=== PATIENT | male | born 1965 | race Caucasian/White ===

== ENCOUNTER 2017-04-29 19:05 | Emergency (ER) | payer OTHER ==
--- NOTE | 2017-04-29 20:31 | ED Physician Documentation ---
PD HPI ABD PAIN - Stated complaint Stated Complaint: ABD PAIN/NAUSEA - Chief complaint Chief Complaint: Abd Pain - History obtained from History obtained from: Patient - History of Present Illness Timing - onset: Today (this morning) Timing - duration: Hours Timing - details: Gradual onset, Constant, Waxing and waning Pain level now: 8 Quality: Pain Location: Periumbilical Radiation: Left flank, Right flank Improved by: Other (no ameliorating factors) Worsened by: Other (no exacerbating factors) Associated symptoms: Nausea. No: Fever, Vomiting, Diarrhea, Constipation, Chest pain Similar symptoms before: Has not had sx before Recently seen: Not recently seen Review of Systems Constitutional: reports: Reviewed and negative Cardiac: reports: Reviewed and negative Respiratory: reports: Reviewed and negative GI: reports: Abdominal Pain, Nausea. denies: Abdominal Swelling, Vomiting, Constipation, Diarrhea : denies: Dysuria, Frequency Skin: reports: Reviewed and negative Musculoskeletal: reports: Reviewed and negative PD PAST MEDICAL HISTORY - Past Medical History Past Medical History: Yes Cardiovascular: Hypertension, High cholesterol Neuro: None Endocrine/Autoimmune: None GI: None : None HEENT: None Psych: None Musculoskeletal: None Derm: None - Past Surgical History Past Surgical History: Yes General: Cholecystectomy, Other HEENT: Tonsil/Adenoidectomy - Allergies Allergies/Adverse Reactions: Allergies Allergy/AdvReac Type Severity Reaction Status Date / Time No Known Drug Allergies Allergy Verified 04/29/17 19:13 - Social History Does the pt smoke?: Yes Smoking Status: Current every day smoker Does the pt drink ETOH?: Yes Does the pt have substance abuse?: No - Immunizations Immunizations are current?: Yes - POLST Patient has POLST: No PD ED PE NORMAL - Vitals Vital signs reviewed: Yes - General General: Alert and oriented X 3, No acute distress (mostly NAD but at time he appears to shift around on stretcher due to episodic discomfort), Well developed /nourished - HEENT HEENT: Moist mucous membranes - Neck Neck: Supple, no meningeal sign - Cardiac Cardiac: RRR, No murmur, No gallop, No rub - Respiratory Respiratory: No respiratory distress, Clear bilaterally - Abdomen Abdomen: Normal bowel sounds, Soft, Non tender, Non distended, No organomegaly - Back Back: No CVA TTP, No spinal TTP - Derm Derm: Normal color, Warm and dry, No rash - Extremities Extremities: No edema Results - Vitals Vitals: Vital Signs - 24 hr 04/29/17 04/29/17 04/29/17 19:07 21:50 23:02 Temperature 36.9 C Heart Rate 89 85 77 Respiratory 18 16 16 Rate Blood Pressure 164/99 H 136/76 H 123/71 O2 Saturation 100 97 98 Oxygen O2 Source Room air - Labs Labs: Laboratory Tests 04/29/17 04/29/17 04/29/17 20:20 20:55 20:55 WBC 12.8 H RBC 4.56 L Hgb 14.1 Hct 40.4 L MCV 88.8 MCH 31.0 MCHC 34.9 RDW 13.3 Plt Count 239 MPV 7.6 Neut # 10.3 H Lymph # 1.5 [place] # 0.9 Eos # 0.1 Baso # 0.0 Absolute Nucleated RBC 0.00 Nucleated RBCs 0.0 Sodium 134 L Potassium 3.8 Chloride 102 Carbon Dioxide 22 Anion Gap 10.0 BUN 14 Creatinine 0.8 Estimated GFR (MDRD) 102 Glucose 109 H Calcium 9.9 Total Bilirubin 0.6 AST 30 ALT 64 H Alkaline Phosphatase 76 Total Protein 7.2 Albumin 4.6 Globulin 2.6 Albumin/Globulin Ratio 1.8 Lipase 22 Urine Color YELLOW Urine Clarity CLEAR Urine pH 7.0 Ur Specific [place] 1.015 Urine Protein NEGATIVE Urine Glucose (UA) NEGATIVE Urine Ketones NEGATIVE Urine Occult Blood NEGATIVE Urine Nitrite NEGATIVE Urine Bilirubin NEGATIVE Urine Urobilinogen 0.2 (NORMAL) Ur Leukocyte Esterase NEGATIVE Ur Microscopic Review NOT INDICATED Urine Culture Comments NOT INDICATED - Rads (name of study) CT A/P Radiology: Prelim report reviewed, See rad report PD MEDICAL DECISION MAKING - ED course Complexity details: reviewed results, re-evaluated patient, considered differential, d/w patient ED course: On reevaluation, after tests resulted, patient appears comfortable. He is awake , alert, and in NAD. He reports resolution of his discomfort and reexam of abdomen reveals it remains nontender and nondistended. Results reviewed, he is comfortable with discharge home Departure - Departure Disposition: 01 Home, Self Care Clinical Impression: Abdominal pain Condition: Good Instructions: ED Abdominal Pain Unkn Cause Male Follow-Up: [facility] [Provider Group] [facility] [Provider Group] Comments: Take pepcid or prilosec once per day for the next two weeks (these are available [id number]) Discharge Date/Time: 04/29/17 23:03
[2017-04-29] MEDS ORDERED: KETOROLAC 60 MG/2 ML VIAL IVP STA (20:46)
[2017-04-29] MEDS ORDERED: PHENobarb/HYOSCY/ATROPINE/SCOP 5 ML SYRINGE PO STA (20:47)
[2017-04-29] MEDS ORDERED: MAG HYDROX/AL HYDROX/SIMETH 30 ML UDC PO STA (20:47)
[2017-04-29] MEDS ORDERED: LIDOCAINE VISCOUS 2% 15 ML UDC MM STA (20:47)
[2017-04-29 20:56] LABS: BILIRUBIN,URINE NEGATIVE (NEGATIVE)
[2017-04-29 20:58] LABS: UA CHARGE (STRIP ONLY) YES; UR CULTURE IF IND NOT INDICATED
[2017-04-29] MEDS ORDERED: KETOROLAC 30 MG/ML VIAL ONE (21:04)
[2017-04-29] MEDS ORDERED: LIDOCAINE VISCOUS 2% 15 ML UDC MM ONE (21:04)
[2017-04-29] MEDS ORDERED: PHENobarb/HYOSCY/ATROPINE/SCOP 5 ML SYRINGE PO ONE (21:04)
[2017-04-29] MEDS ORDERED: MAG HYDROX/AL HYDROX/SIMETH 30 ML UDC ONE (21:04)
[2017-04-29 21:08] LABS: BASOPHILS % (AUTO) 0.3 %; EOSINOPHILS # (AUTO) 0.1 10^3/uL (0.0-0.7); EOSINOPHILS % (AUTO) 0.7 %; HCT - HEMATOCRIT 40.4 % (42.0-52.0); HGB - HEMOGLOBIN 14.1 g/dL (14.0-18.0); LYMPHOCYTES # (AUTO) 1.5 10^3/uL (1.5-3.5); LYMPHOCYTES % (AUTO) 11.5 %; MEAN CORPUSCULAR HGB CONC 34.9 g/dL (32.0-36.0); MEAN CORPUSCULAR VOLUME 88.8 fL (80.0-94.0); MEAN PLATELET VOLUME 7.6 fL (7.4-11.4); MONOCYTES # (AUTO) 0.9 10^3/uL (0.0-1.0); MONOCYTES % (AUTO) 6.9 %; NEUTROPHILS # (AUTO) 10.3 10^3/uL (1.5-6.6); NEUTROPHILS % (AUTO) 80.6 %; RED BLOOD COUNT 4.56 10^6/uL (4.70-6.10); RED CELL DISTRIBUTION WIDTH 13.3 % (12.0-15.0); UNCORRECTED WHITE BLOOD COUNT 12.8 x10^3/uL; WHITE BLOOD COUNT 12.8 x10^3/uL (4.8-10.8)
[2017-04-29 21:16] LABS: ALBUMIN/GLOBULIN RATIO 1.8 (1.0-2.2); BILIRUBIN,TOTAL 0.6 mg/dL (0.2-1.0); CALCIUM 9.9 mg/dL (8.5-10.3); CREATININE 0.8 mg/dL (0.6-1.2); POTASSIUM 3.8 mmol/L (3.5-5.0); TOTAL PROTEIN 7.2 g/dL (6.7-8.2)
[2017-04-29] MEDS ORDERED: IOPAMIDOL-300 100 ML VIAL IVP ONE (21:30)
--- NOTE | 2017-04-29 22:12 | CT Preliminary Report ---
Exam: CT Abdomen/Pelvis W/ IMPRESSION: 1. Mild diverticulosis without diverticulitis or other acute bowel abnormality. 2. Cholecystectomy noted. 3. Fat stranding around the origin of the celiac artery and SMA, possibly representing early vasculit is. [facility] SITE ID: [id number]
--- NOTE | 2017-04-29 22:15 | CT Report ---
EXAM: CT ABDOMEN AND PELVIS EXAM DATE: 04/29/2017 09:39 PM. CLINICAL HISTORY: Abdominal pain radiating to back. COMPARISONS: None. TECHNIQUE: Routine helical CT imaging was performed through the abdomen and pelvis. IV contrast: 100 cc of Isovue-300. Enteric contrast: No. Reconstructions: Coronal and sagittal. In accordance with CT protocol optimization, one or more of the following dose reduction techniques w ere utilized for this exam: automated exposure control, adjustment of mA and/or KV based on patient s ize, or use of iterative reconstructive technique. FINDINGS: Lung Bases: Unremarkable. Liver: Normal. No masses. Gallbladder/Bile Ducts: Cholecystectomy. No dilated ducts. Spleen: Normal. Pancreas: Normal. Adrenal Glands: Normal. Kidneys: Normal. No masses or hydronephrosis. Peritoneal Cavity/Bowel: Mild diverticulosis. No free fluid, free air or adenopathy. No masses or acu te inflammatory process. The appendix is well visualized and normal. Pelvic Organs: Prostate and bladder are unremarkable. Vasculature: No aortic aneurysm or dissection. Mild facet stranding around the origins of the celiac artery and SMA without narrowing or wall thickening. Bones: No significant abnormality. Other: None. IMPRESSION: 1. Mild diverticulosis without diverticulitis or other acute bowel abnormality. 2. Cholecystectomy noted. 3. Fat stranding around the origin of the celiac artery and SMA, possibly representing early vasculit is. [facility] Referring Provider Line: [phone] SITE ID: [id number]
[2017-04-29] MEDS ORDERED: HYDROcod/ACET 5/325 Prepack 6 PO STA (22:44)
[2017-04-29] MEDS ORDERED: HYDROcod/ACET 5/325 Prepack 6 PO ONE ×2 (22:53→22:57)
[2017-04-29 23:03] VITALS: BP 123/71
== END 2017-04-29 23:03 | disposition home or self-care (01) ==
LOC: ED 19:05
DX: R10.32 Left lower quadrant pain (principal); R10.31 Right lower quadrant pain; I10 Essential (primary) hypertension; E78.00 Pure hypercholesterolemia, unspecified; F17.200 Nicotine dependence, unspecified, uncomplicated
CPT/HCPCS: 36415; 74177; 80053; 81003; 83690; 85025; 96374; 99283; A9270; Q9967; 81001; 87086